=== PATIENT | female | born 1980 | race Caucasian/White ===

== ENCOUNTER 2016-10-30 13:40 | Emergency (ER) | payer MEDICAID ==
[~2016-10-30] VITALS: Ht 162.6 cm; Wt 69.9 kg
[2016-10-30 13:57] VITALS: BP 124/56
[2016-10-30] MEDS ORDERED: IBUPROFEN 600 MG TABLET PO ONE ×2 (14:30→14:40)
== END 2016-10-30 15:21 | disposition home or self-care (01) ==
LOC: ER 13:44
DX: S90.122A Contusion of left lesser toe(s) without damage to nail, initial encounter (principal); Z88.0 Allergy status to penicillin; W22.8XXA Striking against or struck by other objects, initial encounter; Y93.89 Activity, other specified; Y92.89 Other specified places as the place of occurrence of the external cause; Y99.8 Other external cause status
CPT/HCPCS: 73660-TC; A4606; Z7610

== ENCOUNTER 2019-06-13 11:27 | Emergency (ER) | payer MEDICAID ==
[~2019-06-13] VITALS: Ht 162.6 cm; Wt 82.6 kg
[2019-06-13 11:31] VITALS: BP 156/103
--- NOTE | 2019-06-13 12:08 | NUR ---
AT BEDSIDE FOR EVAL.
--- NOTE | 2019-06-13 13:18 | NUR ---
Patient discharged to home in stable condition. Written and verbal after care instructions given. Patient verbalizes understanding of instruction.
== END 2019-06-13 13:20 | disposition home or self-care (01) ==
LOC: ER 11:29
DX: D17.39 Benign lipomatous neoplasm of skin and subcutaneous tissue of other sites (principal); Z88.0 Allergy status to penicillin

== ENCOUNTER 2019-06-24 21:06 | Emergency (ER) | payer MEDICAID ==
[~2019-06-24] VITALS: Ht 162.6 cm; Wt 83.5 kg
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
--- NOTE | 2019-06-24 22:59 | NUR ---
IV INITIATED L AC 18G. LABS DRAWN FROM SITE. HAND SANDER AT BEDSIDE FOR COLLECTION. IV INTACT AND PATENT
[2019-06-24] MEDS ORDERED: ACETAMINOPHEN ES 500 MG TABLET PO ONE (23:00)
[2019-06-24] MEDS ORDERED: ONDANSETRON HCL/PF 4 MG/2 ML VIAL IVP ONE (23:00)
[2019-06-24] MEDS ORDERED: IV NS 0.9% 1,000 ML BAG IV ONE (23:00)
[2019-06-24 23:07] LABS: BASOPHILS % (AUTO) 0.4 % (0.0-2.0); EOSINOPHILS % (AUTO) 7.6 % (0.0-6.0); HEMATOCRIT 42 % (33-45); HEMOGLOBIN 13.9 g/dL (11.5-14.8); LYMPHOCYTES # (AUTO) 0.5 /CMM (0.8-4.8); LYMPHOCYTES % (AUTO) 16.3 % (20.0-44.0); MEAN CORPUSCULAR HGB CONC 33 g/dl (31.0-36.0); MEAN CORPUSCULAR VOLUME 81 fL (82-100); MONOCYTES # (AUTO) 0.3 /CMM (0.1-1.30); MONOCYTES % (AUTO) 8.8 % (2.0-12.0); NEUTROPHILS % (AUTO) 66.9 % (43.0-81.0); PLATELET COUNT (AUTO) 186 /CMM (150-450); RED BLOOD CELL COUNT(AUTO) 5.15 MIL/uL (4.0-5.2)
[2019-06-24] MEDS ORDERED: ONDANSETRON HCL/PF 4 MG/2 ML VIAL ONE (23:08)
[2019-06-24] MEDS ORDERED: ACETAMINOPHEN ES 500 MG TABLET ONE (23:08)
[2019-06-24 23:14] LABS: CALCIUM, SERUM 8.1 mg/dL (8.5-10.1); CREATININE 0.8 mg/dL (0.6-1.3); POTASSIUM 3.1 mmol/L (3.5-5.1)
[2019-06-24] MEDS ORDERED: POTASSIUM CHLORIDE 20 MEQ TAB.PRT.SR PO ONE ×2 (23:30→23:46)
[2019-06-24 23:43] VITALS: BP 132/84
--- NOTE | 2019-06-24 23:57 | NUR ---
PT AMBULATORY WITH STEADY GAIT TO RESTROOM. PT DENIES PAIN AT THIS TIME.
[2019-06-25] MEDS ORDERED: IV NS 0.9% 1,000 ML BAG IV ONE
[2019-06-25] MEDS ORDERED: IBUPROFEN 600 MG TABLET PO ONE ×2 (01:10→01:30)
--- NOTE | 2019-06-25 01:44 | NUR ---
IV removed. Catheter intact and site benign. Pressure and 4x4 applied to site. No bleeding noted.Patient discharged to home in stable condition. Written and verbal after care instructions given. Patient verbalizes understanding of instruction. PT AMBULATORY WITH STEADY GAIT.
== END 2019-06-25 01:48 | disposition home or self-care (01) ==
LOC: ER 21:08
DX: J06.9 Acute upper respiratory infection, unspecified (principal); L72.9 Follicular cyst of the skin and subcutaneous tissue, unspecified; Z98.890 Other specified postprocedural states; Z88.0 Allergy status to penicillin
CPT/HCPCS: 36415; 80048; 83605; 85025; 87040 ×2; 96374; 99284; J2405; J7030 ×2

== ENCOUNTER 2019-12-27 14:40 | Emergency (ER) | payer MEDICAID ==
[~2019-12-27] VITALS: Ht 162.6 cm; Wt 83.9 kg
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
[2019-12-27] MEDS ORDERED: IBUPROFEN 600 MG TABLET PO ONE ×2 (15:28→15:30)
--- NOTE | 2019-12-27 15:45 | NUR ---
Patient discharged to home in stable condition. Written and verbal after care instructions given. Patient verbalizes understanding of instruction.
[2019-12-27] MEDS: IBUPROFEN 600 MG TABLET PO ONE (15:47)
[2019-12-27 17:20] VITALS: BP 144/76
== END 2019-12-27 15:45 | disposition home or self-care (01) ==
LOC: ER 14:43
DX: M54.2 Cervicalgia (principal); M54.6 Pain in thoracic spine; M25.531 Pain in right wrist; Z98.890 Other specified postprocedural states; Z88.0 Allergy status to penicillin; Z88.2 Allergy status to sulfonamides; V49.49XA Driver injured in collision with other motor vehicles in traffic accident, initial encounter; Y93.89 Activity, other specified; Y92.413 State road as the place of occurrence of the external cause; Y99.8 Other external cause status
CPT/HCPCS: 73110